=== PATIENT | male | born 1955 | race Caucasian/White ===

== ENCOUNTER 2021-09-06 14:24 | Emergency (ER) | payer OTHER, SELFPAY ==
[2021-09-06 14:26] VITALS: BP 192/118; PULSE 97; RESP 17; TEMP 36.8; O2SAT 97; BMI 26.5
--- NOTE | 2021-09-06 15:00 | RAD_ITS ---
STUDY: X-RAY - LEFT SHOULDER REASON FOR EXAM: Male, 66 years old. Pain following a fall. TECHNIQUE: 4 view(s) of the shoulder. COMPARISON: None. FINDINGS: Normal glenohumeral articulation. Normal acromioclavicular joint. Normal acromion. Normal humeral head and visualized proximal humerus. The soft tissue structures are unremarkable. Normal visualized pulmonary apex. RAD/Shoulder min 2 Views IMPRESSION: Normal x-ray examination of the shoulder. Electronically Signed: Joshua Demarco MD at 15:13 EDT ,
--- NOTE | 2021-09-06 15:09 | EDS_ITS ---
HPI <JJ Guadalupe - Last Filed: 09/06/21 15:17> History of Present Illness HPI Narrative: 66-year-old male with no significant medical history presents to the emergency department with 1 week of left shoulder pain. Patient was walking, slipped falling backwards outstretched his arm to catch himself and injured his left shoulder. Patient denies any other injury. Patient states that over the last several days, he has pain whenever he tries to elevate his arm over 90 degrees. Patient denies any neurological or focal deficits. Chief Complaint: Upper Extremity Injury PFSH <JJ Guadalupe - Last Filed: 09/06/21 15:17> [facility] Home Medications naproxen [Naprosyn] 500 mg PO BID PRN #20 tab 09/06/21 [Rx Last Taken Unknown] Allergy/AdvReac Type Severity Reaction Status Date / Time No Known Allergies Allergy Verified 09/06/21 14:24 Social History Smoking Status: Current every day smoker tobacco type: cigarettes ROS <JJ Guadalupe - Last Filed: 09/06/21 15:17> ROS ED ROS Narrative Constitutional: Negative for fever, chills, weight loss, weakness Eyes: Negative for vision loss, vision change, double vision ENT: Negative for any sore throat, ear pain, congestion Cardiovascular: Negative for any chest pain, tightness, palpitations, racing heartbeat Respiratory: Negative for any cough, sputum production, hemoptysis, shortness of breath, shortness of breath on exertion, orthopnea Gastrointestinal: Negative for any abdominal pain, nausea, vomiting, diarrhea, constipation, blood in stool, blood in vomit : Negative for any urinary frequency, incontinence, dysuria, retention, blood in urine Muscle skeletal: Negative for any muscle joint pain, stiffness, myalgias, arthralgias, neck pain, back pain. Positive for left shoulder pain Neurological: Negative for any headache, dizziness, syncope, numbness or tingling Skin: Negative for any rashes, lumps, itching, abrasions, lacerations Psychiatric: Negative for any depression, anxiety, stress, suicidal ideation, homicidal ideation Hematologic: Negative for any easy bruising, excessive bruising, easy bleeding Allergies: Negative for any eczema, hives, rash EXAM <JJ Guadalupe - Last Filed: 09/06/21 15:17> Physical Exam Narrative Exam Narrative: Vital signs reviewed. Extremities: No peripheral edema, no signs of gross trauma or deformity. Patient has pain to the anterior shoulder. With any sort of elevation, flexion or extension above 90 degrees, patient has pain and decreased strength. Patient's physical examination consistent with a ligamental tear. This does not look out of place, negative for any deformity. Neuro: Cranial nerves II through XII intact, no focal neurological deficits. Skin: Clean dry and intact with no rash, purpura, petechiae, vesicles or pustules. Backslash flank: No CVA tenderness, no midline spinal tenderness, no deformity. Psych: Normal mood and affect. No SI, HI or acute psychosis. Const Vital Signs: 09/06/21 14:26 Temperature 98.2 F Temperature Source Temporal Pulse Rate 97 Respiratory Rate 17 Blood Pressure 192/118 H Blood Pressure Mean 142 Pulse Ox 97 Oxygen Delivery Method Room Air Positive well nourished and well developed General Appearance ED: well developed [facility] <JJ Guadalupe - Last Filed: 09/06/21 15:17> [facility] Narrative Medical decision making narrative: Patient appears well, patient appears nontoxic, vital signs are stable. Patient presents to the emergency department with left shoulder pain following a fall 1 week ago. Patient's physical examination is consistent with a ligamental tear. Days show no acute osseous abnormality however I do believe there could be some internal damage. Patient will follow up closely with orthopedics, for further testing and evaluation. Patient will be given naproxen for pain, instructed to ice and rest the extremity. And to follow-up with orthopedics, instructed to return for any worsening symptoms. <Dr. Anupam Ham DO - Last Filed: 09/06/21 15:28> [facility] Narrative Medical decision making narrative: Attending note: Patient seen and evaluated with service advocate contact. I perform my own [id number] evaluation. I agree with the plan of work-up. Mechanical fall a week ago outstretched hand. No head injuries. He is right-hand dominant. Pain in left shoulder worse with overhead movements. States with Him and Cause Pain. Has Been Using Ibuprofen. No Paresthesias. Exam There Is No Deformities, Pain with Apley's Test. Negative Speeds. Mild Empty Can. 4 View Shoulder X-Rays Reviewed by Myself and read by radiology shows no acute process. No fracture dislocations. Exam concerns for rotator cuff injury and labrum injury due to catching sensations. We will continue ibuprofen. He did have a sling, however states can use for comfort however needs to remove multiple times a day to prevent frozen shoulder. He is given follow-up with orthopedics. Discharge Plan Triage Chief Complaint: Upper Extremity Injury ED Midlevel Provider: Zaid Mace ED Provider: Anupam Ham Dx/Rx/DC Orders Clinical Impression: Sprain of shoulder, Internal derangement of left shoulder, Fall Prescriptions: New naproxen [Naprosyn] 500 mg tablet 500 mg PO BID PRN (Reason: pain) Qty: 20 RF: 0 Primary Care Provider: Wilner Leon Referrals: Elder Pierce DO [STAFF PHYSICIAN] - 3-5 Days Wilner Leon MD [Primary Care Provider] - Activity Restrictions/Additional Instructions: The x-ray of your shoulder shows no acute osseous abnormality. However due to your physical examination I have a concern for a rotator cuff/labral tear, I would like you to follow-up with orthopedics in the next few days. Please use anti-inflammatories. Please ice. Follow-up is very important Print Language: French Disposition Disposition: Home, Self Care Discharge Date/Time: 09/06/21 15:24
== END 2021-09-06 15:24 | disposition home or self-care (01) ==
LOC: ED 15:20
PROVIDERS: Emergency Provider Emergency Medicine; PCP Family Medicine; Visit Provider Emergency Medicine
DX: S49.92XA Unspecified injury of left shoulder and upper arm, initial encounter (principal); M24.812 Other specific joint derangements of left shoulder, not elsewhere classified; W01.0XXA Fall on same level from slipping, tripping and stumbling without subsequent striking against object, initial encounter; F17.210 Nicotine dependence, cigarettes, uncomplicated
CPT/HCPCS: 73030; 99282

== ENCOUNTER → 2023-10-27 | Outpatient (CLI) | payer MEDICARE, SELFPAY | END | disposition home or self-care (01) | PROVIDERS: PCP Family Medicine; Referring Provider Internal Medicine Cardiovascular Disease; Visit Provider Internal Medicine Cardiovascular Disease | DX: I49.3 Ventricular premature depolarization (principal) | CPT/HCPCS: 93225; 93226 ==